=== PATIENT | female | born 1950 | race African-American/Black ===

== ENCOUNTER 2020-09-09 16:56 | Emergency (ER) | payer MEDICARE ==
[2020-09-09] MEDS ORDERED: Meclizine HCl 25 MG TAB ONE (19:44)
[2020-09-09] MEDS ORDERED: Lorazepam 2 MG/ML VIAL ONE (19:45)
[2020-09-09 19:58] LABS: #Eosinphils 0.1 10x3/uL (0.0-0.5); #Monocytes 0.7 10x3/uL (0.0-1.1); #Neutrophils 1.8 10x3/uL (1.5-8.4); %Basophils 0.7 % (0.0-2.0); %Eosinophils 2.2 % (0.0-6.0); %Lymphocytes 51.5 % (18.0-47.0); %Monocytes 13.1 % (0.0-10.0); %Neutrophils 32.3 % (40.0-75.0); Hemoglobin 13.5 g/dL (12.0-15.5); Mean Corpuscular HGB CONC 32.9 g/dL (32.0-36.0); Mean Corpuscular Hemoglobin 30.4 pg (27.0-33.0); Mean Corpuscular Volume 92.3 fl (81.6-98.3); Mean Platelet Volume 10.6 fl (7.4-10.4); Platelet Count 309 10x3/uL (150-450); RBC Distribution Width 14.1 % (11.5-14.5); Red Blood Cell (RBC) Count 4.44 10x6/uL (3.90-5.03); White Blood Cell (WBC) Count 5.4 10x3/uL (3.5-10.5)
[2020-09-09 20:11] LABS: ALT (SGPT) 37 U/L (8-55); AST (SGOT) 32 U/L (5-34); Albumin 4.6 g/dL (3.4-4.8); Alkaline Phosphatase 128 U/L (40-110); Anion Gap 14 mmol/L (10-20); BUN (Urea Nitrogen) 10 mg/dL (9.8-20.1); Bilirubin, Total 0.4 mg/dL (0.2-1.2); Calc. Creatinine Clearance 0 mL/min (70-130); Calcium 10.5 mg/dL (7.8-10.44); Carbon Dioxide 27 mmol/L (23-31); Chloride 105 mmol/L (98-107); Glucose 87 mg/dL (80-115); Lipase 30 U/L (8-78); Magnesium 2.3 mg/dL (1.6-2.6); Potassium 4.5 mmol/L (3.5-5.1); Protein, Total 7.6 g/dL (5.8-8.1); Sodium 141 mmol/L (136-145)
[2020-09-09 20:52] LABS: Bilirubin Neg (Negative); Blood, Urine Negative (Negative); Clarity Clear (Clear); Glucose, Urine (Dipstick) Normal (Negative); Ketone, Urine Negative (Negative); Leukocyte Negative (Negative); Nitrite Negative (Negative); Protein, Urine (Dipstick) Negative (Neg-Trace); Specific Gravity, Urine 1.005 (1.002-1.036); Urobilinogen Normal mg/dL (Less than 2)
== END 2020-09-09 22:03 | disposition home or self-care (01) ==
LOC: CSHERS 16:56
DX: H81.399 Other peripheral vertigo, unspecified ear (principal)
CPT/HCPCS: 70450; 71045; 80053; 81003; 83690; 83735; 84484; 85025; 93005; 96374; J2060

== ENCOUNTER 2021-08-18 10:08 | Outpatient (CLI) | payer MEDICARE | END 2021-08-18 10:09 | disposition home or self-care (01) | LOC: CSHMAMMO 10:08 | PROVIDERS: ATTEND Family Medicine | DX: Z12.31 Encounter for screening mammogram for malignant neoplasm of breast (principal) | CPT/HCPCS: 77063; 77067 ==

== ENCOUNTER 2021-11-02 20:13 | Emergency (ER) | payer MEDICARE ==
[2021-11-02 21:49] LABS: Hemoglobin 12.7 g/dL (12.0-15.5); Mean Corpuscular Hemoglobin 30.2 pg (27.0-33.0); Mean Corpuscular Volume 88.8 fl (81.6-98.3); Mean Platelet Volume 10.2 fl (7.4-10.4); Platelet Count 295 10x3/uL (150-450); Red Blood Cell (RBC) Count 4.21 10x6/uL (3.90-5.03); White Blood Cell (WBC) Count 5.2 10x3/uL (3.5-10.5)
[2021-11-02 21:52] LABS: ALT (SGPT) 41 U/L (8-55); AST (SGOT) 29 U/L (5-34); Albumin 4.1 g/dL (3.4-4.8); Alkaline Phosphatase 124 U/L (40-110); Anion Gap 14 mmol/L (10-20); BUN (Urea Nitrogen) 14 mg/dL (9.8-20.1); Bilirubin, Total 0.2 mg/dL (0.2-1.2); Calc. Creatinine Clearance 0 mL/min (70-130); Calcium 10.2 mg/dL (7.8-10.44); Carbon Dioxide 23 mmol/L (23-31); Chloride 103 mmol/L (98-107); Globulin 2.9 g/dL (2.4-3.5); Glucose 291 mg/dL (80-115); Potassium 4.1 mmol/L (3.5-5.1); Sodium 136 mmol/L (136-145)
[2021-11-02 22:06] LABS: MDiff Complete? YES
[2021-11-02 22:09] LABS: Eosinophils 2 % (0-10); Lymphocytes 48 % (21-51); Monocytes 15 % (0-10); Neutrophil 34 % (42-75); Platelet Morphology Comment Appears Adequate
[2021-11-02 22:10] LABS: RBC Morphology Normal
[2021-11-02 22:18] LABS: Bilirubin Neg (Negative); Blood, Urine Negative (Negative); Clarity Clear (Clear); Glucose, Urine (Dipstick) 250 mg/dL (Negative); Ketone, Urine Negative (Negative); Leukocyte Negative (Negative); Nitrite Negative (Negative); Protein, Urine (Dipstick) Negative (Neg-Trace); Specific Gravity, Urine 1.015 (1.002-1.036); Urobilinogen Normal mg/dL (Less than 2)
== END 2021-11-02 23:10 | disposition home or self-care (01) ==
LOC: CSHERS 20:13
DX: R42 Dizziness and giddiness (principal); E11.9 Type 2 diabetes mellitus without complications; I10 Essential (primary) hypertension
CPT/HCPCS: 80053; 81003; 84484; 85025; 93005

== ENCOUNTER 2023-11-24 10:28 | Outpatient (CLI) | payer MEDICARE | END 2023-11-24 10:29 | disposition home or self-care (01) | LOC: CSHMAMMO 10:28 | PROVIDERS: ATTEND Physician Assistant | DX: M81.0 Age-related osteoporosis without current pathological fracture (principal); M85.89 Other specified disorders of bone density and structure, multiple sites | CPT/HCPCS: 77080 ==